=== PATIENT | male | born 1985 | race Caucasian/White ===

== ENCOUNTER → 2023-12-31 09:28 | Outpatient (CLI) | payer OTHER, MEDICAID, SELFPAY ==
[2023-12-31 10:09] LABS: Appearance Urine UA CLEAR; Bilirubin Urine UA NEGATIVE (NEGATIVE); Color Urine UA YELLOW; Glucose Urine UA NEGATIVE (Negative); Ketones Urine UA NEGATIVE (NEGATIVE); Leukocyte Esterase Urine UA NEGATIVE (NEGATIVE); Nitrite Urine UA NEGATIVE (Negative); Occult Blood Urine UA NEGATIVE (Negative); Protein Urine UA NEGATIVE (Negative); Specific Gravity Urine UA 1.015 (1.000-1.035); Urobilinogen Urine UA 0.2 E.U./dL (0.2); pH Urine UA 7.5 (4.5-8.0)
[2023-12-31 10:25] LABS: Bacteria Urine Occasional (0-1); Culture Indicated Urine Cult Not Indicated; RBC Urine None Seen (0-5/HPF); Squamous Epithelial Cell Urine None Seen (0-5/HPF); Urine Volume 10mL (spun); WBC Urine None Seen (0-5/HPF)
== END ==
PROVIDERS: PCP Registered Nurse; Visit Provider Physician Assistant
DX: N39.41 Urge incontinence (principal); R35.0 Frequency of micturition; E03.9 Hypothyroidism, unspecified; Z80.42 Family history of malignant neoplasm of prostate
CPT/HCPCS: 81001; 87086

== ENCOUNTER → 2023-12-31 10:01 | Outpatient (CLI) | payer OTHER, MEDICAID, SELFPAY ==
--- NOTE | 2023-12-31 10:03 | DI.RAD.S_ITS ---
PROCEDURE: XR KUB INDICATIONS: llq pain x 2 weeks, TECHNIQUE: One view of the abdomen acquired. COMPARISON: None. FINDINGS: Surgical changes and devices: None. Bowel: Bowel gas pattern is nonobstructive. Mild fecal stasis throughout the colon is seen. No gross pneumoperitoneum. Soft tissues: No suspicious abdominal calcifications. Visualized solid organ contours appear normal in size. Bones: No suspicious bony lesions. IMPRESSION: No evidence of bowel obstruction or gross free air. Mild constipation. Dictated by: Kenny Morales M.D. on 12/31/2023 at 12:49 Approved by: Kenny Morales M.D. on 12/31/2023 at 12:49
== END ==
PROVIDERS: PCP Registered Nurse; Referring Provider Physician Assistant; Visit Provider Physician Assistant
DX: K59.00 Constipation, unspecified (principal); N39.41 Urge incontinence; R10.32 Left lower quadrant pain; R35.0 Frequency of micturition; E03.9 Hypothyroidism, unspecified; Z80.42 Family history of malignant neoplasm of prostate
CPT/HCPCS: 74018; 81001; 87086

== ENCOUNTER → 2024-01-01 16:58 | Outpatient (CLI) | payer OTHER, MEDICAID, SELFPAY ==
[2024-01-01 17:21] LABS: Add Manual Diff / Slide Review NO; Basophils Absolute Auto 100 /uL (0-100); Basophils Percent Auto 1.2 % (0-2); Eosinophils Absolute Auto 200 /uL (0-450); Eosinophils Percent Auto 2.2 % (2-4); Hematocrit 43.4 % (41-53); Hemoglobin 15.1 g/dL (13.5-17.5); Lymphocytes Absolute Auto 2600 /uL (1100-4500); Lymphocytes Percent Auto 30.3 % (25-40); Mean Corpuscular HGB Conc 34.8 % (30-36); Mean Corpuscular Hemoglobin 30.3 PG (26-34); Mean Corpuscular Volume 87.3 fL (80-100); Monocytes Absolute Auto 400 /uL (0-900); Monocytes Percent Auto 4.3 % (3-14); Neutrophils Absolute Auto 5300 /uL (1500-7000); Platelet Count 190 X10^3/uL (150-400); Red Blood Cell Count 4.98 X10^6/uL (4.5-5.9); Red Cell Distribution Width 12.8 % (11.6-14.8); White Blood Cell Count 8.5 X10^3/uL (4.5-11.0)
[2024-01-01 17:29] LABS: Hemoglobin A1C% w Est Avg Glu 5.5 % (4.0-6.0)
[2024-01-01 17:35] LABS: Alanine Aminotransferase 25 IU/L (<50); Albumin 4.6 g/dL (3.5-5.0); Albumin Globulin Ratio 1.6 (1.0-2.8); Alkaline Phosphatase 60 U/L (38-126); Aspartate Aminotransferase 24 IU/L (17-59); BUN Creatinine Ratio 11.5 (6-22); Bilirubin Total 0.6 mg/dL (0.2-1.3); Blood Urea Nitrogen 9 mg/dL (9-20); Calcium 9.2 mg/dL (8.4-10.2); Carbon Dioxide 23 mmol/L (22-32); Chloride 107 mmol/L (98-107); Estimated Glomerular Filt Rate > 60 mL/min (>60); Globulin 2.8 g/dL (1.7-4.1); Glucose 103 mg/dL (70-100); HEMOLYSIS < 15 (0-50); Potassium 3.8 mmol/L (3.4-5.1); Sodium 140 mmol/L (137-145); Total Protein 7.4 g/dL (6.3-8.2)
[2024-01-03 14:29] LABS: PSA, Total 0.2 ng/mL (0.0-4.0)
== END ==
PROVIDERS: PCP Registered Nurse; Referring Provider Physician Assistant; Visit Provider Physician Assistant
DX: R35.0 Frequency of micturition (principal); Z80.42 Family history of malignant neoplasm of prostate; E03.9 Hypothyroidism, unspecified; R10.32 Left lower quadrant pain
CPT/HCPCS: 36415; 80053; 83036; 84153; 84154; 85025

== ENCOUNTER → 2024-01-10 08:11 | Outpatient (CLI) | payer OTHER, MEDICAID, SELFPAY ==
--- NOTE | 2024-01-10 08:12 | DI.CT.S_ITS ---
PROCEDURE: CT ABDOMEN PELVIS W CON INDICATIONS: constant LLQ pain x 2weeks, getting worse TECHNIQUE: After the administration of intravenous contrast, axial sections acquired from the lung bases to the pubic symphysis. Coronal and sagittal reformats were performed. For radiation dose reduction, the following was used: automated exposure control, adjustment of mA and/or kV according to patient size. COMPARISON: None. FINDINGS: Image quality: Diagnostic Lower chest: Right Bochdalek's hernia. Prominent mediastinal fat. Normal heart size where visualized Liver: Unremarkable Gallbladder and biliary system: Unremarkable, nondilated Pancreas: No ductal dilation Spleen: Nonenlarged Adrenals: No discrete nodules. Mild thickening bilaterally Kidneys: No solid renal mass. No hydronephrosis. Punctate right nonobstructing calculus. Vessels and lymph nodes: The main portal vein is patent. No abdominal aortic aneurysm or pathologic lymph nodes by size criteria Bowel and peritoneum: No evidence of small bowel obstruction. No evidence of acute inflammation. Appendix is not seen. No pathologic ascites or abscess Body wall: Mild nonspecific subcutaneous ventral abdominal wall fat stranding. Tiny fat containing umbilical hernia and left inguinal hernia. Pelvis: Bladder is unremarkable. Prostate is not well evaluated on this study Bones: Small scattered sclerotic lesions may represent bone islands. No acute or suspicious osseous finding. IMPRESSION: No acute abdominal pelvic abnormality. Nonspecific areas of mild fat stranding in the ventral abdominal wall, possibly medication injection sites. No fluid collection. Other findings as above. Dictated by: Venkata Canchola M.D. on 01/10/2024 at 9:39 Approved by: Venkata Canchola M.D. on 01/10/2024 at 9:44
== END ==
PROVIDERS: PCP Registered Nurse; Referring Provider Physician Assistant; Visit Provider Physician Assistant
DX: K40.90 Unilateral inguinal hernia, without obstruction or gangrene, not specified as recurrent (principal); Q79.0 Congenital diaphragmatic hernia; R10.32 Left lower quadrant pain; N20.0 Calculus of kidney
CPT/HCPCS: 74177; Q9967

== ENCOUNTER 2024-02-10 06:44 | Emergency (ER) | payer OTHER, MEDICAID, SELFPAY ==
--- NOTE | 2024-02-10 07:12 | ED.BACK ---
HPI - Back Pain/Injury General Chief Complaint: Back Pain/Injury Stated Complaint: Kidney Stone Time Seen by Provider: 02/10/24 06:55 Source: patient, RN notes reviewed and old records reviewed Mode of arrival: Ambulatory Limitations: no limitations History of Present Illness HPI Narrative: 38-year-old male history of hypothyroidism on levothyroxine, left inguinal hernia who presents with complaint of onset of right lower abdominal pain that moved to his right flank overnight. He states has been persistent since about 3:00 a.m. this morning. He has had chills with waxing and waning pain. Patient states he has had nausea and vomiting. He states he has been mildly constipated he has had stools but small amount. No black or bloody stool. Denies any dysuria, urgency frequency or hematuria. He has had a sensation that he needs to urinate few times when he did not. Patient is unaware of any rash or skin changes. States levothyroxine as his only medication. States he was told he had kidney stones imaging in the past he does not recall which side. He is never had a kidney stone that he recalls. Patient states he has had an appendectomy. No known drug allergies. Denies any tobacco use, no regular alcohol, no recreational drugs. Related Data Previous Rx's Medication Instructions Recorded ondansetron 4 mg disintegrating 4 mg PO Q6H PRN nausea and 02/10/24 tablet vomiting #10 tabs ondansetron 4 mg disintegrating 4 mg PO Q6H PRN nausea and 02/10/24 tablet vomiting #10 tabs oxycodone 5 mg tablet 5 mg PO Q6H PRN pain #14 tabs 02/10/24 oxycodone 5 mg tablet 5 mg PO QID PRN pain #14 tabs 02/10/24 tamsulosin 0.4 mg capsule (Flomax) 0.4 mg PO DAILY #7 caps 02/10/24 tamsulosin 0.4 mg capsule (Flomax) 0.4 mg PO DAILY #7 caps 02/10/24 Allergies Allergy/AdvReac Type Severity Reaction Status Date / Time No Known Drug Allergies Allergy Unverified 12/31/23 09:21 Review of Systems Review of Systems ROS Unobtainable: All systems reviewed & are unremarkable except as noted in HPI and below Patient History Social History Smoking Status: Never smoker Exam Narrative Exam Narrative: GENERAL: Alert and oriented x three, male in moderate distress. HEENT: Head normocephalic, atraumatic, EOMI, pupils reactive, face symmetric, moist mucous membranes NECK: Supple, full range of motion CARDIOVASCULAR: Regular rate and rhythm without murmurs, rubs or gallops. RESPIRATORY: Breath sounds equal bilaterally, no wheezes rales or rhonchi. ABDOMEN: Soft, nontender. Normoactive bowel sounds all 4 quadrants. No guarding or rebound, rigidity, no mass : No CVA tenderness EXTREMITIES: Normal range of motion, no clubbing or edema. Neurovascularly intact NEUROLOGICAL: Cranial nerves II through XII grossly intact. Moving all extremities SKIN: Warm, dry, no petechiae, no rashes or lesions. Initial Vital Signs Initial Vital Signs: Vital Signs Temperature 98.2 F 02/10/24 07:13 Pulse Rate 61 02/10/24 07:13 Respiratory Rate 17 02/10/24 07:13 Blood Pressure 139/71 02/10/24 07:13 Pulse Oximetry 97 02/10/24 07:13 Oxygen Delivery Method Room Air 02/10/24 07:13 Course Orders Ordered: Discontinued Medications Sodium Chloride (Normal Saline 0.9%) 1,000 mls @ 1,000 mls/hr IV BOLUS ONE Stop: 02/10/24 08:10 Last Infusion: 02/10/24 08:37 Dose: Infused Documented By: Admin: 02/10/24 07:38 Dose: 1,000 mls/hr Documented By: RB Ketorolac Tromethamine (Ketorolac 30 Mg/Ml Vial) 15 mg IV NOW ONE Stop: 02/10/24 07:12 Last Admin: 02/10/24 07:38 Dose: 15 mg Documented By: RB Ondansetron HCl (Ondansetron 4 Mg/2 Ml Inj) 4 mg IV NOW ONE Stop: 02/10/24 07:12 Last Admin: 02/10/24 07:38 Dose: 4 mg Documented By: RB Tamsulosin HCl (Tamsulosin 0.4 Mg Capsule) 0.4 mg PO NOW ONE Stop: 02/10/24 09:15 Last Admin: 02/10/24 09:49 Dose: 0.4 mg Documented By: Vital Signs Vital signs: Vital Signs - 8 hr 02/10/24 07:13 02/10/24 08:40 Temperature 98.2 F Pulse Rate 61 53 L Respiratory Rate 17 16 Blood Pressure 139/71 121/70 Pulse Oximetry 97 98 Oxygen Delivery Method Room Air Room Air MDM - Back Pain/Injury Lab Data 02/10/24 07:05 02/10/24 07:49 Labs: Lab Results 02/10/24 02/10/24 02/10/24 Range/Units 07:05 07:37 07:49 WBC 8.8 (4.5-11.0) X10^3/uL RBC 5.12 (4.5-5.9) X10^6/uL Hgb 15.3 (13.5-17.5) g/dL Hct 44.7 (41-53) % MCV 87.2 (80-100) fL MCH 29.8 (26-34) PG MCHC 34.2 (30-36) % RDW 12.9 (11.6-14.8) % Plt Count 203 (150-400) X10^3/uL Neut % (Auto) 70.1 (50-75) % Lymph % (Auto) 23.3 L (25-40) % [place] % (Auto) 4.3 (3-14) % Eos % (Auto) 1.7 L (2-4) % Baso % (Auto) 0.6 (0-2) % Neut # (Auto) 6200 (2796-3478) /uL Lymph # (Auto) 2000 (5032-9253) /uL [place] # (Auto) 400 (0-900) /uL Eos # (Auto) 100 (0-450) /uL Baso # (Auto) 100 (0-100) /uL Sodium 140 (137-145) mmol/L Potassium 4.3 (3.4-5.1) mmol/L Chloride 109 H (98-107) mmol/L Carbon Dioxide 24 (22-32) mmol/L BUN 14 (9-20) mg/dL Creatinine 0.84 (0.66-1.25) mg/dL Estimated GFR > 60 (>60) mL/min BUN/Creatinine Ratio 16.7 (6-22) Glucose 115 H (70-100) mg/dL Calcium 9.0 (8.4-10.2) mg/dL Total Bilirubin 0.7 (0.2-1.3) mg/dL AST 30 (17-59) IU/L ALT 21 (<50) IU/L Alkaline Phosphatase 62 (38-126) U/L Total Protein 6.8 (6.3-8.2) g/dL Albumin 4.3 (3.5-5.0) g/dL Globulin 2.5 (1.7-4.1) g/dL Albumin/Globulin Ratio 1.7 (1.0-2.8) Lipase 166 (23-300) U/L Urine RBC 1-5/hpf (0-5/HPF) Urine WBC None seen (0-5/HPF) Ur Squamous Epith Cells None seen (0-5/HPF) Urine Bacteria None seen (None) Ur Culture Indicated? Cult not indicated Vol Urine Centrifuged 10ml (spun) Urine Dip Bedside Urine Glucose Negative Bedside Urine Bilirubin - Negative Bedside Urine Ketone - Negative Urine Specific [place] 1.015 Bedside Urine Occult Blood ++ Bedside Urine pH 7.0 Bedside Urine Protein - Negative Bedside Urine Urobilinogen - Negative Bedside Urine Nitrite - Negative Bedside Urine Leukocytes - Negative Esterase Imaging Data CT scan - abdomen/pelvis: Radiologist's Impression: Close Abdomen/Pelvis CT (Signed) Wyatt Rascon - 02/10/24 Abdomen/Pelvis CT (Signed) Venkata Canchola - 01/10/24 KUB X-Ray (Signed) Kenny Morales - 12/31/23 Launch?[place] [address] CT Scan Report Signed Patient: Yifan Foote MR#: [id number] : 1985 Acct:[id number] Age/Sex: 38 / M Date of Service: 02/10/24 Loc: ED Accession Number: [id number] Procedure: CT kidney ureter bladder (KUB) Ordering Provider: Doris Fuentes D.O. PROCEDURE: CT KIDNEY URETER BLADDER (KUB) INDICATIONS: right flank pain, right anterior, hx prior appy TECHNIQUE: Axial sections were acquired from the lung bases to the pubic symphysis. Coronal and sagittal reformats were performed. For radiation dose reduction, the following was used: automated exposure control, adjustment of mA and/or kV according to patient size. COMPARISON: [facility], CT, CT ABDOMEN PELVIS W CON, 01/10/2024, 9:25. FINDINGS: Image quality: Diagnostic. Lower Chest: No significant findings. URINARY: Right Kidney: Mild hydronephrosis. No renal parenchymal stone. Right Ureter: A 3 mm stone obstructs the right ureter at the right ureterovesical junction resulting in mild to moderate hydroureter and mild hydronephrosis. Left Kidney: No stones or hydronephrosis. Left Ureter: No hydroureter. Bladder: Normal wall thickness. No stones. ABDOMEN: Liver: No contour-deforming solid mass. Gallbladder: No radiopaque gallstones or wall thickening. Biliary ducts: No biliary dilation. Pancreas: No ductal dilation. Spleen: Size is within normal limits. Adrenal Glands: No adrenal nodules. Stomach and Bowel: Normal colonic caliber, without significant wall thickening. Peritoneum: No abnormal intraperitoneal fluid. No free air. Ventral Wall: No hernia. Abdominal Nodes: No enlarged retroperitoneal or mesenteric lymph nodes. Vessels: Aorta and inferior vena cava are normal in size. PELVIS: Pelvic Organs: Unremarkable. Pelvic Nodes: Unremarkable. Miscellaneous: Fat containing bilateral inguinal hernias, left greater than right. Bones: Mild chronic anterior vertebral body height loss of T11 and T12, frequently seen. Tiny presumed bone islands. IMPRESSION: 1. A 3 mm stone obstructs the proximal right ureter resulting in mild right hydronephrosis. 2. Bilateral fat containing inguinal hernias. Dictated by: Wyatt Rascon M.D. on 02/10/2024 at 8:48 Approved by: Wyatt Rascon M.D. on 02/10/2024 at 8:51 MDM Narrative Medical decision making narrative: 38-year-old male with right flank pain that started overnight patient does have blood in his point of care urine. Has reportedly had kidney stones on imaging. Patient labs are overall appropriate, urine shows blood no signs of infection. Patient has a stone on the right that is 3 mm with mild right hydro. On recheck patient pain Started on Flomax, medication for pain management and referral to Urology if needed. Discharge Plan Departure Patient Disposition: Home Clinical Impression: Kidney stone on right side Instructions: DI for Kidney Stones Activity Restrictions/Additional Instructions: Your prior imaging does note a right Bochdalek's hernia on imaging from 01/10/24. You do have a kidney in the right side, based on the size and will likely pass without any intervention but contact is included below for Urology if your symptoms are not improving over the next several days. Take Flomax once daily until gone. You can take Tylenol up to a 1000 mg every 6 hours as needed and/or take ibuprofen up to 600 mg every 6 hours as needed. If inadequate for pain control you can take narcotic pain medication 1-2 tablets every 6 hours as needed. This medication can make you sleepy do not drive, perform hazardous activities or make any major decisions while taking it. This medication will make you constipated please take a stool softener once to twice daily until stools are soft and regular. Prescription sent to [facility] in [place]. Please return for fevers, rapidly worsening abdominal back or flank pain, persistent vomiting, lightheadedness passing out or other new or concerning changes. Prescriptions: New tamsulosin [Flomax] 0.4 mg capsule 0.4 mg PO DAILY Qty: 7 0RF ondansetron 4 mg tablet,disintegrating 4 mg PO Q6H PRN (Reason: nausea and vomiting) Qty: 10 0RF oxycodone 5 mg tablet 5 mg PO Q6H PRN (Reason: pain) Qty: 14 0RF tamsulosin [Flomax] 0.4 mg capsule 0.4 mg PO DAILY Qty: 7 0RF ondansetron 4 mg tablet,disintegrating 4 mg PO Q6H PRN (Reason: nausea and vomiting) Qty: 10 0RF oxycodone 5 mg tablet 5 mg PO QID PRN (Reason: pain) Qty: 14 0RF Referrals: Gene Peng MD [Physician] - Ольга Styles ARNP [Primary Care Provider] - Stand Alone Forms: Patient Portal/API
[2024-02-10 07:13] VITALS: BP 139/71; PULSE 61; RESP 17; TEMP 36.8; O2SAT 97; BMI 38.0
[2024-02-10 07:38] LABS: Add Manual Diff / Slide Review NO; Basophils Absolute Auto 100 /uL (0-100); Basophils Percent Auto 0.6 % (0-2); Eosinophils Absolute Auto 100 /uL (0-450); Eosinophils Percent Auto 1.7 % (2-4); Hematocrit 44.7 % (41-53); Hemoglobin 15.3 g/dL (13.5-17.5); Lymphocytes Absolute Auto 2000 /uL (1100-4500); Lymphocytes Percent Auto 23.3 % (25-40); Mean Corpuscular HGB Conc 34.2 % (30-36); Mean Corpuscular Hemoglobin 29.8 PG (26-34); Mean Corpuscular Volume 87.2 fL (80-100); Monocytes Absolute Auto 400 /uL (0-900); Monocytes Percent Auto 4.3 % (3-14); Neutrophils Absolute Auto 6200 /uL (1500-7000); Neutrophils Percent Auto 70.1 % (50-75); Platelet Count 203 X10^3/uL (150-400); Red Blood Cell Count 5.12 X10^6/uL (4.5-5.9); Red Cell Distribution Width 12.9 % (11.6-14.8); White Blood Cell Count 8.8 X10^3/uL (4.5-11.0)
[2024-02-10] MEDS: SODIUM CHLORIDE 0.9% 1,000 ML 1000 ML IV (07:38)
[2024-02-10] MEDS: ONDANSETRON 4 MG/2 ML INJ IV (07:38)
[2024-02-10] MEDS: KETOROLAC 30 MG/ML VIAL 15 MG IV (07:38)
[2024-02-10 07:42] LABS: Urine Volume 10mL (spun)
[2024-02-10 07:44] LABS: RBC Urine 1-5/HPF (0-5/HPF)
[2024-02-10 07:45] LABS: Bacteria Urine None Seen; Culture Indicated Urine Cult Not Indicated; Squamous Epithelial Cell Urine None Seen (0-5/HPF); WBC Urine None Seen (0-5/HPF)
[2024-02-10 07:57] LABS: Alanine Aminotransferase 21 IU/L (<50); Albumin 4.3 g/dL (3.5-5.0); Albumin Globulin Ratio 1.7 (1.0-2.8); Alkaline Phosphatase 62 U/L (38-126); Aspartate Aminotransferase 30 IU/L (17-59); BUN Creatinine Ratio 16.7 (6-22); Bilirubin Total 0.7 mg/dL (0.2-1.3); Blood Urea Nitrogen 14 mg/dL (9-20); Carbon Dioxide 24 mmol/L (22-32); Chloride 109 mmol/L (98-107); Estimated Glomerular Filt Rate > 60 mL/min (>60); Globulin 2.5 g/dL (1.7-4.1); Glucose 115 mg/dL (70-100); HEMOLYSIS 15 (0-50); Lipase 166 U/L (23-300); Potassium 4.3 mmol/L (3.4-5.1); Sodium 140 mmol/L (137-145); Total Protein 6.8 g/dL (6.3-8.2)
--- NOTE | 2024-02-10 08:16 | DI.CT.S_ITS ---
PROCEDURE: CT KIDNEY URETER BLADDER (KUB) INDICATIONS: right flank pain, right anterior, hx prior appy TECHNIQUE: Axial sections were acquired from the lung bases to the pubic symphysis. Coronal and sagittal reformats were performed. For radiation dose reduction, the following was used: automated exposure control, adjustment of mA and/or kV according to patient size. COMPARISON: [facility], CT, CT ABDOMEN PELVIS W CON, 01/10/2024, 9:25. FINDINGS: Image quality: Diagnostic. Lower Chest: No significant findings. URINARY: Right Kidney: Mild hydronephrosis. No renal parenchymal stone. Right Ureter: A 3 mm stone obstructs the right ureter at the right ureterovesical junction resulting in mild to moderate hydroureter and mild hydronephrosis. Left Kidney: No stones or hydronephrosis. Left Ureter: No hydroureter. Bladder: Normal wall thickness. No stones. ABDOMEN: Liver: No contour-deforming solid mass. Gallbladder: No radiopaque gallstones or wall thickening. Biliary ducts: No biliary dilation. Pancreas: No ductal dilation. Spleen: Size is within normal limits. Adrenal Glands: No adrenal nodules. Stomach and Bowel: Normal colonic caliber, without significant wall thickening. Peritoneum: No abnormal intraperitoneal fluid. No free air. Ventral Wall: No hernia. Abdominal Nodes: No enlarged retroperitoneal or mesenteric lymph nodes. Vessels: Aorta and inferior vena cava are normal in size. PELVIS: Pelvic Organs: Unremarkable. Pelvic Nodes: Unremarkable. Miscellaneous: Fat containing bilateral inguinal hernias, left greater than right. Bones: Mild chronic anterior vertebral body height loss of T11 and T12, frequently seen. Tiny presumed bone islands. IMPRESSION: 1. A 3 mm stone obstructs the proximal right ureter resulting in mild right hydronephrosis. 2. Bilateral fat containing inguinal hernias. Dictated by: Wyatt Rascon M.D. on 02/10/2024 at 8:48 Approved by: Wyatt Rascon M.D. on 02/10/2024 at 8:51
[2024-02-10 08:40] VITALS: BP 121/70; PULSE 53; RESP 16; O2SAT 98
[2024-02-10 09:49] VITALS: BP 130/72; PULSE 57; RESP 16; O2SAT 98
[2024-02-10] MEDS: TAMSULOSIN 0.4 MG CAPSULE PO (09:49)
== END 2024-02-10 09:49 | disposition home or self-care (01) ==
PROVIDERS: Emergency Provider Emergency Medicine; PCP Registered Nurse
DX: N20.0 Calculus of kidney (principal)
CPT/HCPCS: 36415; 74176; 80053; 81003; 81015; 83690; 85025; 96374; 96375; 99284; J1885; J2405